=== PATIENT | male | born 1965 | race Hispanic/Latino ===

== ENCOUNTER 2019-04-07 01:18 | Inpatient (IN) | payer OTHER | END 2019-04-09 14:46 | disposition home or self-care (01) | LOC: EDH 01:18 → EDHIP 03:17 → 4AH 08:09 | DX: S32.029A Unspecified fracture of second lumbar vertebra, initial encounter for closed fracture (principal); M54.5 Low back pain; S32.039A Unspecified fracture of third lumbar vertebra, initial encounter for closed fracture; S32.049A Unspecified fracture of fourth lumbar vertebra, initial encounter for closed fracture; I10 Essential (primary) hypertension; E11.9 Type 2 diabetes mellitus without complications ==